=== PATIENT | male | born 1955 | race Caucasian/White ===

== ENCOUNTER 2017-10-05 06:45 | Observation (INO) | payer OTHER ==
[2017-10-05 07:24] LABS: ADD MAN DIFF? NO
[2017-10-05 07:27] LABS: WHITE BLOOD COUNT 7.4 10^3/ul (4.8-10.8)
[2017-10-05 07:27] LABS: BASOPHILS % 0.1 % (0.0-2.0); EOSINOPHILS # 0.1 10^3/ul (0.0-0.5); EOSINOPHILS % 1.3 % (0.0-7.0); HEMATOCRIT 39.6 % (42.0-52.0); HEMOGLOBIN 13.5 g/dl (14.0-18.0); LYMPHOCYTES # 2.6 10^3/ul (0.8-2.9); LYMPHOCYTES % 35.1 % (15.0-51.0); MEAN CORPUSCULAR HEMOGLOBIN 32.2 pg (29.0-33.0); MEAN CORPUSCULAR HGB CONC 34.1 g/dl (32.0-37.0); MEAN CORPUSCULAR VOLUME 94.5 fl (82.0-101.0); MEAN PLATELET VOLUME 8.6 fl (7.4-10.4); MONOCYTE # 0.7 10^3/ul (0.3-0.9); MONOCYTES % 9.4 % (0.0-11.0); PLATELET COUNT 226 10^3/UL (140-415); RED BLOOD COUNT 4.19 10^6/ul (4.70-6.10); RED CELL DISTRIBUTION WIDTH 12.8 % (11.5-14.5)
[2017-10-05 07:46] LABS: ANION GAP 14 (8-16); CARBON DIOXIDE 27 mmol/L (21-31); CHLORIDE 108 mmol/L (97-110); CHOL/HDL RATIO 3.4 RATIO; CHOLESTEROL 160 mg/dl (100-200); GLUCOSE 115 mg/dl (70-220); HDL CHOLESTEROL 47 mg/dl (30-78); LDL CHOLESTEROL,CALCULATED 71 mg/dl; TRIGLYCERIDES 210 mg/dl (0-149)
[2017-10-05 07:50] LABS: BLOOD UREA NITROGEN 13 mg/dl (7-20); CALCIUM 8.9 mg/dl (8.4-10.2); POTASSIUM 4.4 mmol/L (3.5-5.1); SODIUM 145 mmol/L (135-144)
[2017-10-05 07:57] LABS: INR 0.98; PROTIME 13.1 Sec (11.9-14.9)
[2017-10-05 08:24] LABS: PARTIAL THROMBOPLASTIN TIME 35.8 Sec (25.0-35.0)
[2017-10-05] MEDS ORDERED: LIDOCAINE 1% (MDV) 20 ML INJ (09:04)
[2017-10-05] MEDS ORDERED: HEPARIN 1000 UNITS/ML 10 ML INJ (09:04)
[2017-10-05] MEDS ORDERED: IODIXANOL LOCM 100 ML BTL (09:04)
[2017-10-05] MEDS ORDERED: NITROGLYCERIN (IC) 100 MCG/ML INJ (09:05)
[2017-10-05] MEDS ORDERED: VERAPAMIL 5 MG INJ (09:05)
[2017-10-05] MEDS ORDERED: MIDAZOLAM 1 MG/ML 2 ML INJ (09:05)
[2017-10-05] MEDS ORDERED: FENTAnyl 50 MCG/ML VIAL (09:05)
[2017-10-05] MEDS ORDERED: ASPIRIN 325 MG TAB (10:30)
[2017-10-05] MEDS ORDERED: CLOPIDOGREL 300 MG TAB (10:30)
[2017-10-05] MEDS ORDERED: ACETAMINOPHEN 325 MG TAB PO (11:00)
[2017-10-05] MEDS ORDERED: ZOLPIDEM 5 MG TAB PO (11:00)
[2017-10-05] MEDS ORDERED: AL HYDROX/MG HYDROX/SIMETH 30 ML CUP PO (11:00)
[2017-10-05] MEDS ORDERED: morphine 2 MG INJ IV (11:00)
[2017-10-05] MEDS ORDERED: ONDANSETRON 4 MG INJ IV (11:00)
[2017-10-05] MEDS: SOD CHLORIDE 0.9% 1,000 ML IV (11:29)
[2017-10-05] MEDS ORDERED: PANTOPRAZOLE SODIUM 20 MG TABEC PO (15:00)
[2017-10-05] MEDS: LORATADINE 10 MG TAB PO (16:38)
[2017-10-05] MEDS: PANTOPRAZOLE (EC) 40 MG TAB PO (16:38)
[2017-10-05] MEDS: FINASTERIDE 5 MG TAB PO (16:38)
[2017-10-05] MEDS: NICOTINE (21 MG/24 HR) PATCH TRANSDERM (16:38)
[2017-10-05] MEDS: BACLOFEN 10 MG TAB PO (20:15)
[2017-10-05] MEDS: ROSUVASTATIN CALCIUM 40 MG TABLET PO (20:15)
[2017-10-05] MEDS: MIRTAZAPINE 15 MG TAB PO (20:15)
[2017-10-05] MEDS: TAMSULOSIN (SR) 0.4 MG CAP PO (20:15)
[2017-10-05] MEDS: GABAPENTIN 400 MG CAP PO (20:16)
[2017-10-06] MEDS: PANTOPRAZOLE (EC) 40 MG TAB PO (05:27)
[2017-10-06 05:35] LABS: ADD MAN DIFF? NO
[2017-10-06 05:42] LABS: BASOPHILS % 0.1 % (0.0-2.0); EOSINOPHILS # 0.1 10^3/ul (0.0-0.5); EOSINOPHILS % 0.7 % (0.0-7.0); HEMATOCRIT 38.6 % (42.0-52.0); HEMOGLOBIN 13.3 g/dl (14.0-18.0); LYMPHOCYTES # 2.2 10^3/ul (0.8-2.9); LYMPHOCYTES % 25.3 % (15.0-51.0); MEAN CORPUSCULAR HEMOGLOBIN 32.4 pg (29.0-33.0); MEAN CORPUSCULAR HGB CONC 34.5 g/dl (32.0-37.0); MEAN CORPUSCULAR VOLUME 93.9 fl (82.0-101.0); MEAN PLATELET VOLUME 8.8 fl (7.4-10.4); MONOCYTE # 0.7 10^3/ul (0.3-0.9); NEUTROPHIL # 5.7 10^3/ul (1.6-7.5); NEUTROPHILS % 65.6 % (39.0-77.0); PLATELET COUNT 225 10^3/UL (140-415); RED BLOOD COUNT 4.11 10^6/ul (4.70-6.10); RED CELL DISTRIBUTION WIDTH 13.2 % (11.5-14.5)
[2017-10-06 05:42] LABS: WHITE BLOOD COUNT 8.7 10^3/ul (4.8-10.8)
[2017-10-06 06:04] LABS: ANION GAP 16 (8-16); BLOOD UREA NITROGEN 11 mg/dl (7-20); CALCIUM 8.8 mg/dl (8.4-10.2); CARBON DIOXIDE 26 mmol/L (21-31); CHLORIDE 108 mmol/L (97-110); CREATININE 0.75 mg/dl (0.61-1.24); GLUCOSE 119 mg/dl (70-220); POTASSIUM 4.5 mmol/L (3.5-5.1); SODIUM 145 mmol/L (135-144)
[2017-10-06] MEDS: LORATADINE 10 MG TAB PO (08:29)
[2017-10-06] MEDS: ASPIRIN (EC) 81 MG TAB PO (08:30)
[2017-10-06] MEDS: CLOPIDOGREL 75 MG TAB PO (08:31)
[2017-10-06] MEDS: FINASTERIDE 5 MG TAB PO (08:36)
[2017-10-06 15:04] LABS: TROPONIN-I 0.017 ng/ml (0.000-0.120)
[2017-10-06] MEDS ORDERED: morphine LIQ (10 MG/5 ML) CUP PO (19:30)
== END 2017-10-06 15:35 | disposition home or self-care (01) ==
LOC: SDS 06:45 → REC 10:52 → ICU 13:37
DX: I25.10 Atherosclerotic heart disease of native coronary artery without angina pectoris (principal); Z95.5 Presence of coronary angioplasty implant and graft; E78.00 Pure hypercholesterolemia, unspecified; N40.0 Benign prostatic hyperplasia without lower urinary tract symptoms; Z79.02 Long term (current) use of antithrombotics/antiplatelets; F17.210 Nicotine dependence, cigarettes, uncomplicated; E66.9 Obesity, unspecified; Z68.28 Body mass index [BMI] 28.0-28.9, adult; J45.909 Unspecified asthma, uncomplicated; E87.0 Hyperosmolality and hypernatremia
CPT/HCPCS: 71045; 80048; 80061; 84484; 85025; 85610; 85730; 87081; 93005; 93458

== ENCOUNTER 2018-10-30 06:48 | Day surgery (SDC) | payer MEDICARE, OTHER ==
[2018-10-30 07:52] LABS: ADD MAN DIFF? NO
[2018-10-30 07:54] LABS: WHITE BLOOD COUNT 8.3 10^3/ul (4.8-10.8)
[2018-10-30 07:54] LABS: BASOPHILS % 0.1 % (0.0-2.0); EOSINOPHILS # 0.4 10^3/ul (0.0-0.5); EOSINOPHILS % 4.3 % (0.0-7.0); HEMATOCRIT 36.9 % (42.0-52.0); HEMOGLOBIN 12.5 g/dl (14.0-18.0); LYMPHOCYTES # 2.4 10^3/ul (0.8-2.9); MEAN CORPUSCULAR HEMOGLOBIN 31.5 pg (29.0-33.0); MEAN CORPUSCULAR HGB CONC 33.9 g/dl (32.0-37.0); MEAN CORPUSCULAR VOLUME 92.9 fl (82.0-101.0); MEAN PLATELET VOLUME 8.6 fl (7.4-10.4); MONOCYTE # 0.7 10^3/ul (0.3-0.9); NEUTROPHIL # 4.8 10^3/ul (1.6-7.5); NEUTROPHILS % 58.2 % (39.0-77.0); PLATELET COUNT 236 10^3/UL (140-415); RED BLOOD COUNT 3.97 10^6/ul (4.70-6.10); RED CELL DISTRIBUTION WIDTH 13.7 % (11.5-14.5)
[2018-10-30 08:16] LABS: INR 0.97
[2018-10-30 08:17] LABS: PARTIAL THROMBOPLASTIN TIME 32.3 Sec (23.0-35.0)
[2018-10-30] MEDS ORDERED: LIDOCAINE 1% (MDV) 20 ML INJ (08:59)
[2018-10-30] MEDS ORDERED: HEPARIN 1000 UNITS/ML 10 ML INJ (08:59)
[2018-10-30] MEDS ORDERED: VERAPAMIL 5 MG INJ (08:59)
[2018-10-30] MEDS ORDERED: IODIXANOL LOCM 100 ML BTL ×2 (08:59→10:24)
[2018-10-30] MEDS ORDERED: NITROGLYCERIN (IC) 100 MCG/ML INJ (08:59)
[2018-10-30] MEDS: DIPHENHYDRAMINE 25 MG CAP PO (09:03)
[2018-10-30] MEDS: FAMOTIDINE 20 MG TAB PO (09:03)
[2018-10-30] MEDS: DIAZEPAM 5 MG TAB PO (09:03)
[2018-10-30 09:05] LABS: CHOL/HDL RATIO 7.2 RATIO; HDL CHOLESTEROL 34 mg/dl (30-78); LDL CHOLESTEROL,CALCULATED 156 mg/dl; TRIGLYCERIDES 283 mg/dl (0-149)
[2018-10-30 09:05] LABS: CHOLESTEROL 247 mg/dl (100-200)
[2018-10-30 09:08] LABS: ANION GAP 7 (5-13); BLOOD UREA NITROGEN 12 mg/dl (7-20); CARBON DIOXIDE 26 mmol/L (21-31); CHLORIDE 108 mmol/L (97-110); CREATININE 0.85 mg/dl (0.61-1.24); Estimated GFR > 60 mL/min (>60); GLUCOSE 104 mg/dl (70-220); POTASSIUM 4.1 mmol/L (3.5-5.1); SODIUM 141 mmol/L (135-144)
[2018-10-30] MEDS ORDERED: MIDAZOLAM 1 MG/ML 2 ML INJ (09:48)
[2018-10-30] MEDS ORDERED: FENTAnyl 50 MCG/ML VIAL (09:48)
[2018-10-30] MEDS ORDERED: ACETAMINOPHEN 325 MG TAB PO (10:30)
[2018-10-30] MEDS ORDERED: ONDANSETRON 4 MG INJ IV (10:30)
[2018-10-30] MEDS ORDERED: morphine 2 MG INJ IV (10:30)
[2018-10-30] MEDS ORDERED: AL HYDROX/MG HYDROX/SIMETH 30 ML CUP PO (10:30)
[2018-10-30] MEDS: SOD CHLORIDE 0.9% 1,000 ML IV (10:44)
== END 2018-10-30 14:05 | disposition home or self-care (01) ==
LOC: CCL 06:48 → SDS 06:48 → CCL 14:05
DX: I25.10 Atherosclerotic heart disease of native coronary artery without angina pectoris (principal); I34.0 Nonrheumatic mitral (valve) insufficiency; I10 Essential (primary) hypertension; E78.5 Hyperlipidemia, unspecified; Z98.61 Coronary angioplasty status
CPT/HCPCS: 71045; 80048; 80061; 85025; 85610; 85730; 93005; 93458